=== PATIENT | female | born 1980 | race Two or more races ===

== ENCOUNTER 2021-10-29 08:34 | Emergency (ER) | payer MEDICAID ==
[~2021-10-29] VITALS: Ht 157.5 cm; Wt 87.0 kg
[2021-10-29] MEDS ORDERED: LEVO50TA8 PO (09:04)
[2021-10-29] MEDS ORDERED: KETOROLAC 60MG/2ML VIAL IM ONE (10:15)
[2021-10-29 10:32] VITALS: BP 159/92
[2021-10-29] MEDS ORDERED: ARM1EACH MC (11:32)
[2021-10-29] MEDS ORDERED: NAPR-681 MT (11:32)
== END 2021-10-29 11:48 | disposition home or self-care (01) ==
LOC: ER 08:34
DX: M25.521 Pain in right elbow (principal); E78.00 Pure hypercholesterolemia, unspecified; Z86.39 Personal history of other endocrine, nutritional and metabolic disease; Z98.890 Other specified postprocedural states
CPT/HCPCS: 73080; 81025; 96372; 99283; J1885

== ENCOUNTER 2021-12-23 07:57 | Emergency (ER) | payer MEDICAID ==
[~2021-12-23] VITALS: Ht 157.5 cm; Wt 87.0 kg
[~2021-12-23 07:57] MED LIST: ARM1EACH MC; LEVO50TA8 PO; NAPR-681 MT
[2021-12-23 08:17] VITALS: BP 167/82
== END 2021-12-23 11:10 | disposition home or self-care (01) ==
LOC: ER 07:57
DX: S99.911A Unspecified injury of right ankle, initial encounter (principal); X58.XXXA Exposure to other specified factors, initial encounter; R03.0 Elevated blood-pressure reading, without diagnosis of hypertension; Y93.01 Activity, walking, marching and hiking; Y92.89 Other specified places as the place of occurrence of the external cause
CPT/HCPCS: 73610; 73630; 81025; 99284